=== PATIENT | male | born 1945 | race Caucasian/White ===

== ENCOUNTER → 2019-05-22 10:09 | Outpatient (BNVA) | payer MEDICARE, SELFPAY | PROVIDERS: Family Provider Internal Medicine; PCP Internal Medicine; Visit Provider Urology | DX: N39.9 Disorder of urinary system, unspecified (principal); N30.80 Other cystitis without hematuria; N40.1 Benign prostatic hyperplasia with lower urinary tract symptoms; R39.14 Feeling of incomplete bladder emptying; R82.71 Bacteriuria | CPT/HCPCS: 81001; 87077; 87086; 87186 ==

== ENCOUNTER 2020-08-16 09:47 | Outpatient (CLI) | payer MEDICARE, SELFPAY ==
--- NOTE | 2020-08-16 10:15 | MR_ITS ---
WS: [id number] MRI LEFT KNEE HISTORY: DERANGEMENT LEFT KNEE COMPARISON: None available. Anterior cruciate ligament: Complete tear ACL. Posterior cruciate ligament: No tear identified. There is mild buckling secondary to the ACL tear. Medial collateral ligament: Intact. Posterior lateral corner structures: Intact. Medial menisci: Anterior horn is extruded with abnormal signal. Marked fraying along the surfaces of the posterior horn. There is blunting of the anterior horn which is probably secondary to a tear cent rally. Lateral meniscus: Intrasubstance degeneration. Complex tear involving the meniscal root. Extensor mechanism: Distal quadriceps tendon and patellar tendons are intact. Fluid and soft tissue: Moderate-sized joint effusion. Complex moderate-sized Donahue's cyst. Donahue's cy st contains variable signal intensity. There is a low signal intensity 8mm nodule within the cyst whi ch is probably calcification. Multiple additional tiny loose bodies within the Donahue's cyst. Osseous and articular structures: Patellofemoral compartment: Mild bilateral chondromalacia of the patella. No marrow edema or fracture . Medial compartment: Severe loss of joint space with bone upon bone and loss of cartilage. There are a few subchondral cystic changes and edema. Lateral compartment: Moderate to severe narrowing of the lateral compartment with mild diffuse loss o f cartilage. There is additional significant loss of cartilage over the posterior femoral condyles. There is signi ficant loss of the cartilage surrounding the femoral condyles. MR/MR knee LT wo con* [id number] IMPRESSION: 1. Complete tear ACL. 2. Severe internal derangement medial compartment and moderate to severe later al compartment. 3. Medial menisci are abnormal consistent with tears and extrusion. 4. Complex tear meniscal root posterior horn lateral meniscus. 5. Moderate-sized joint effusion. 6. Moderate-sized Donahue's cyst with internal debris and loose bodies. 7. Loss of cartilage over the tibial plateaus and femoral condyles. Loss of ca rtilage and involves the joint spaces and the posterior femoral condyles.
== END 2020-08-16 09:48 | disposition home or self-care (01) ==
PROVIDERS: PCP Internal Medicine; Visit Provider Internal Medicine
DX: M23.92 Unspecified internal derangement of left knee (principal); S83.512A Sprain of anterior cruciate ligament of left knee, initial encounter; S83.272A Complex tear of lateral meniscus, current injury, left knee, initial encounter; X58.XXXA Exposure to other specified factors, initial encounter; M25.462 Effusion, left knee; M71.22 Synovial cyst of popliteal space [Baker], left knee
CPT/HCPCS: 73721

== ENCOUNTER 2024-04-02 13:55 | Outpatient (CLI) | payer MEDICARE, SELFPAY | END 2024-04-02 13:56 | disposition home or self-care (01) | LOC: SLEEP 14:01 | PROVIDERS: PCP Internal Medicine; Visit Provider Internal Medicine | DX: G47.33 Obstructive sleep apnea (adult) (pediatric) (principal) | CPT/HCPCS: G0399 ==

== ENCOUNTER → 2024-10-29 13:40 | Outpatient (BNVA) | payer MEDICARE, SELFPAY | PROVIDERS: PCP Family Medicine; Visit Provider Family Medicine | DX: I10 Essential (primary) hypertension (principal); N40.1 Benign prostatic hyperplasia with lower urinary tract symptoms; R39.14 Feeling of incomplete bladder emptying; M19.90 Unspecified osteoarthritis, unspecified site; G47.33 Obstructive sleep apnea (adult) (pediatric) | CPT/HCPCS: 80053; 80061; 85025 ==